=== PATIENT | male | born 1960 | race Caucasian/White ===

== ENCOUNTER 2018-06-11 06:19 | Day surgery (SDC) | payer OTHER ==
--- NOTE | 2018-06-08 15:19 | HP ---
PROCEDURE DATE: 06/11/18 HISTORY OF PRESENT ILLNESS: Patient is a 58 y/o gentleman who had a hernia repair he said back in 1993. He is working in a refinery pulling and twisting. Now, increased bulge. The patient did not have symptoms like that prior to that activity. Pain, burning at the mid abdomen area. Did have recurrent ventral hernia and prior repair back in 1993 or 1994. I am not sure if he had mesh then or not. He additionally has a left flank subcutaneous mass that has been enlarging in size with some aches and pains. PAST MEDICAL HISTORY: Denies any chronic illnesses. CURRENT MEDICATIONS: None on a regular basis. ALLERGIES: NO KNOWN DRUG ALLERGIES. PAST SURGICAL HISTORY: As mentioned above, had a prior hernia repair in mid abdomen/umbilical area in 1993. FAMILY HISTORY: Negative with regards to this problem. SOCIAL HISTORY: 1 pack per day smoker. Does drink alcohol socially. Denies abuse. REVIEW OF SYSTEMS: 12 systems reviewed. No chest pain or palpitations. Other systems negative or noncontributory other than above and per preadmission questionnaire. PHYSICAL EXAMINATION: GENERAL: No acute distress. HEENT: Sclerae nonicteric. NECK: No JVD. CHEST: Equal excursion. Nonlabored breathing. CVS: Regular rate and rhythm. ABDOMEN: Soft. Mid abdomen prior scar from prior surgery years ago. Feels like he has an area consistent with recurrent hernia. Additionally, has a left flank subcutaneous mass, question of lipoma. EXTREMITIES: No edema. NEURO: Alert, moving extremities grossly symmetrically. IMPRESSION: 1. RECURRENT LEFT VENTRAL HERNIA WITH SOME BULGE AND PAIN IN THIS AREA. [place] he would benefit from consideration of laparoscopic assisted repair. Risks and benefits explained in detail, but not limited to, bleeding; infection; risk of trocar injury or hernia; small risk of bowel or bladder issues or injury possibly requiring other procedure; ongoing morbidity; risk of aches, pains, burning, or numbness possibly long-term or chronic in nature; risk of ingrown hair or suture reaction; risk if mesh became infected likely would need to be removed; overall risk of hernia recurrence; the importance of stopping smoking to minimize recurrence and avoiding heavy lifting, pushing, pulling, or straining 6-8 weeks postoperatively to minimize recurrence; general risk of anesthesia, DVT, PE, or pneumonia. Additionally, if Workman's Compensation does not cover this repair may consider also having the subcutaneous mass removed at the same setting. Risk of hematoma or seroma formation, risk of wound infection possibly requiring packing. He also understands if his pending path is a benign lipoma and that lipoma does not recur as it is removed, but he could get other subcutaneous masses or lipomas adjacent to or elsewhere on his body. He understands and agrees to the planned procedure. Will proceed with repair laparoscopic repair recurrent ventral incisional area hernia with mesh, possible open as well as possible excision left flank subcutaneous mass or lipoma. Pending operative findings will depend on whether he will need to stay for pain control overnight.
[2018-06-11] MEDS ORDERED: Versed 2 MG/2 ML Injection IV ONE (06:20)
[2018-06-11] MEDS ORDERED: Ephedrine Sulfate 50 MG/ML IV ONE (06:20)
[2018-06-11] MEDS ORDERED: SUBLIMAZE 250 MCG/5 ML IV ONE (06:20)
[2018-06-11] MEDS ORDERED: DIPRIVAN 200 MG/20 ML IV ONE (06:20)
[2018-06-11] MEDS ORDERED: Zemuron 100 MG/10 ML IV ONE (06:20)
[2018-06-11] MEDS ORDERED: BRIDION 200MG/2ML IV ONE (06:20)
[2018-06-11] MEDS ORDERED: EPINEPHRINE 1MG/ML AMP IV ONE (06:20)
[2018-06-11] MEDS ORDERED: Naropin 0.5% 30 ML VIAL IJ ONE (06:20)
[2018-06-11] MEDS ORDERED: Lactated Ringers 1,000 ML IV ONE ×2 (07:45→08:03)
[2018-06-11] MEDS ORDERED: CEFAZOLIN 2 GM-D5W BAG** 2 GM/50 ML ML IV SCH (08:00)
[2018-06-11] MEDS ORDERED: Lactated Ringers 1,000 ML IV SCH (08:00)
[2018-06-11] MEDS ORDERED: CEFAZOLIN 2 GM-D5W BAG** 2 GM/50 ML ML IV ONE (08:00)
[2018-06-11] MEDS ORDERED: Sensorcaine 0.25% 10 ML ONE (08:03)
[2018-06-11] MEDS ORDERED: SUBLIMAZE 100 MCG/2 ML ONE ×2 (11:27→11:37)
[2018-06-11] MEDS ORDERED: MORPHINE SULFATE 10 MG/ML ONE (11:37)
[2018-06-11] MEDS ORDERED: Zofran 4 MG/2 ML VIAL ONE (11:37)
--- NOTE | 2018-06-11 11:49 | OP ---
SURGERY DATE/TIME: 06/11/2018 0911 PREOPERATIVE DIAGNOSES: 1) Symptomatic incarcerated recurrent ventral hernia. 2) Enlarging subcutaneous symptomatic left flank mass. 3) Nonhealing lesion left lower leg. POSTOPERATIVE DIAGNOSES: 1) Symptomatic incarcerated recurrent ventral hernia. 2) Enlarging subcutaneous symptomatic left flank mass versus lipoma subfascial/submusculature. 3) Nonhealing lesion left lower leg. PROCEDURES: 1) Laparoscopic repair incarcerated recurrent ventral hernia repair with mesh. 2) Excisional biopsy of subfascial/submuscular left flank lipoma (approximately 12 cm). 3) Excisional biopsy of nonhealing left leg lesion (approximately 2.2 cm with margins) with intermediate closure. SURGEON: Dr. Walter Berg. ANESTHESIA: General. ESTIMATED BLOOD LOSS: Minimal. INDICATIONS: As noted above. Risks and benefits explained in detail and not limited to and consent obtained. DESCRIPTION OF PROCEDURE AND FINDINGS: The patient is taken to the operating room. General anesthesia induced. Abdomen, flank and lower leg were prepped and draped in usual sterile fashion. After official time out and no disagreement with planned procedure, a transverse incision made epigastrium area. Fascia grasped pulled upward. Veress needle inserted and tested with saline. Pneumoperitoneum accomplished opening pressure 0 to 15. A 5 mm bladeless port and camera inserted in left lateral abdomen and left upper quadrant. A 5 mm port left lower quadrant, 5 mm port and later a 5 mm port in the right lower abdomen. The patient had incarcerated fat up in recurrent mid abdomen ventral hernia. Using LigaSure device and blunt graspers this is slowly and carefully tissue was freed and reduced down out of incarcerated hernia. It took some time but slowly carefully accomplished clearing circumferentially around this was done. A spinal needle was used to luis f the dimensions. It was felt adequate overlap with size [address] mesh would be the most appropriate size mesh. Additionally the suture passer was used passing interrupted #1 PDS in the true fascial edges 1 cm apart. Sutures were placed and left on clamps temporarily. A 12 port placed. After tagging with 0 Ethibond the size [address] suture strap was cut. Four quadrants were tagged with 0 Ethibond and pulled up the transfascial sutures. 0 Vicryl placed in the middle to center the mesh. Again, the straps were cut and passed off. Once this was accomplished the pressure then placed down to 8. The mesh slightly rolled temporarily placed intra-abdominal where it immediately re-expanded. Transfascial sutures with #1 PDS were closed closing the defect with suture passer used to pulled the centering suture up the midline in the mesh. Once this is accomplished four separate stab wounds in each four quadrants with the suture passer used to tie the transfascial with 0 Ethibond laying the mesh nice flat fashion. Once this was accomplished the capture tacker was used to tack the mesh 1 cm apart around the margins in a tension free manner. Again with the pressure down to 8 to reduce distortion of abdominal wall. Good hemostasis noted. There were no signs of any other issues. Pneumoperitoneum decompressed. Ports removed. The tissue overlying the hernia defect is tacked down to the level of the fascia. The subcu closed with 3-0 Vicryl, skin closed with 4-0 Vicryl. Steri-Strips and sterile dressing applied at the end of the procedure. The patient tolerated the procedure well. There were no immediate complications. Gloves and instruments were changed. Attention was then turned to the left flank mass. Dissection carried down. It is evident that this is not a subcutaneous mass but a subfascial/submuscular mass requiring incising the fascia carefully the muscle to allow dividing it down to submuscular/subfascial space where a large elongated 12 cm lipoma is carefully mobilized away from the surrounding structures and passed off. It appeared to be outside the transversalis fascia from below the internal and external oblique. The specimen passed off. One small perforation controlled with 3-0 Vicryl suture ligature. Good hemostasis noted. Wound irrigated out. Fascia then closed in two layers running 0 PDS. Subcu irrigated out. Subcu closed 3-0 Vicryl. Skin closed with 4-0 Vicryl. Steri-Strips and sterile dressing applied. 0.25% Marcaine local injected along. Gloves and instruments were changed. Attention is then turned to the leg lesion. Marking down to normal appearing skin around this site. There was question whether this is dermatofibroma or other type of lesion. Marking out to normal appearing skin on either side this resulted in 2.2 cm specimen with margins, a 6 cm long spindle-shaped excision pattern. Dissection carried down to normal appearing subcutaneous tissue beneath. Specimen passed off. Good hemostasis noted. We then closed in intermediate fashion with interrupted 3-0 Vicryl closing the deep and superficial subcu. Skin closed with 4-0 Vicryl, interrupted 3-0 Prolene used to reinforce the area given the location on the leg with 0 Prolene. Steri-Strips and sterile dressing applied. 0.25% Marcaine local. The patient tolerated the procedure well. There were no immediate complications. Findings discussed with the family out in the waiting area. He was transferred to the recovery room in stable condition. Anesthesia placed tap blocks at the beginning of the procedure.
[2018-06-11] MEDS ORDERED: NORCO 5/325 MG ONE (13:48)
[2018-06-11] MEDS ORDERED: Zofran 4 MG/2 ML VIAL IV PRN (13:48)
[2018-06-11] MEDS ORDERED: NORCO 5/325 MG PO PRN (13:48)
[2018-06-11] MEDS ORDERED: MORPHINE SULFATE 4 MG INJ IV PRN (13:48)
[2018-06-11 13:59] VITALS: PULSE 99; O2SAT 92
[2018-06-11 14:26] VITALS: BP 126/74
== END 2018-06-11 14:50 | disposition home or self-care (01) ==
LOC: SDC 06:19
PROVIDERS: ATTEND Surgery
DX: K43.6 Other and unspecified ventral hernia with obstruction, without gangrene (principal); R19.09 Other intra-abdominal and pelvic swelling, mass and lump; D17.1 Benign lipomatous neoplasm of skin and subcutaneous tissue of trunk; R20.8 Other disturbances of skin sensation; L98.8 Other specified disorders of the skin and subcutaneous tissue; R06.02 Shortness of breath
CPT/HCPCS: 64488; 76937; 76942; 94010; J0171; J0690; J2250; J2270; J2405; J2704; J2795; J3010; L0625; A9270-GY

== ENCOUNTER 2019-01-14 18:37 | Emergency (ER) | payer OTHER ==
[2019-01-14 18:59] VITALS: O2SAT 97
[2019-01-14] MEDS ORDERED: TORAdol 30 mg Injection IM ONE (19:18)
[2019-01-14] MEDS ORDERED: TORAdol 30 mg Injection ONE (19:21)
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
[2019-01-14 20:26] VITALS: BP 138/84; PULSE 72
[2019-01-14] MEDS ORDERED: NORCO 5/325 MG PO ONE ×2 (20:26→20:51)
[2019-01-14] MEDS ORDERED: NORCO 5/325 MG ONE ×2 (20:27→20:55)
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
== END 2019-01-14 21:10 | disposition home or self-care (01) ==
LOC: ED 18:37
DX: S06.0X0A Concussion without loss of consciousness, initial encounter (principal); S46.912A Strain of unspecified muscle, fascia and tendon at shoulder and upper arm level, left arm, initial encounter; S66.912A Strain of unspecified muscle, fascia and tendon at wrist and hand level, left hand, initial encounter; S93.401A Sprain of unspecified ligament of right ankle, initial encounter; V89.2XXA Person injured in unspecified motor-vehicle accident, traffic, initial encounter
CPT/HCPCS: 70450; 72125; 73030; 73090; 73130; 73610; 96372; 99285; J1885; L3908; A9270-GY